=== PATIENT | female | born 1955 | race Caucasian/White ===

== ENCOUNTER 2017-09-12 19:16 | Emergency (ER) | payer OTHER ==
[2017-09-12] MEDS ORDERED: HYDROCODONE/APAP 10/325 TAB ONE (19:34)
--- NOTE | 2017-09-12 20:15 | RAD REPORT ---
EXAM DESCRIPTION: RAD - Wrist Left 3 View - 09/12/2017 7:59 pm CLINICAL HISTORY: Left wrist pain status post injury FINDINGS: An impacted intra-articular mildly displaced fracture involves the distal radius. No dislocation is seen
--- NOTE | 2017-09-12 20:38 | EDPHYS ---
Physician Documentation [facility] Name: Honey Nixon Age: 62 yrs Sex: Female : 1955 Arrival Date: 09/12/2017 Time: 19:17 Bed 26 Private MD: ED Physician Zak Langford HPI: 09/12 20:00 This 62 yrs old Female presents to ER via Ambulatory with complaints of Left pm1 Wrist Injury. 20:00 The patient or guardian reports pain, swelling. The complaints affect the left wrist pm1 diffusely. Context: The problem was sustained at work, resulted from a fall, while walking. Onset: The symptoms/episode began/occurred just prior to arrival. Modifying factors: The symptoms are alleviated by nothing, the symptoms are aggravated by movement. Associated signs and symptoms: Pertinent negatives: cyanosis distally, decreased sensation distally, numbness distally, tingling distally. 20:00 Patient tripped on a erin at work and fell. Stopped her fall with left hand pm1 outstretched. Presenting with pain to left wrist. No head injury, headache, LOC, neck pain or injury. Historical: - Allergies: 19:23 percodan; aj - Home Meds: 19:23 None [Active]; aj - PMHx: 19:23 None; aj - PSHx: 19:23 L wrist; aj - Immunization history:: Adult Immunizations up to date. - Social history:: Smoking status: Patient/guardian denies using tobacco. ROS: 20:00 Constitutional: Negative for fever, chills, and weight loss, Eyes: Negative for injury, pm1 pain, redness, and discharge, ENT: Negative for injury, pain, and discharge, Neck: Negative for injury, pain, and swelling, Cardiovascular: Negative for chest pain, palpitations, and edema, Respiratory: Negative for shortness of breath, cough, wheezing, and pleuritic chest pain, Abdomen/GI: Negative for abdominal pain, nausea, vomiting, diarrhea, and constipation, Back: Negative for injury and pain. 20:00 Skin: Negative for injury, rash, and discoloration, patient with small abrasion to left dorsal aspect of left wrist prior to injury 20:00 MS/extremity: Positive for injury or acute deformity, pain, of the left wrist. Exam: 20:00 Hand exam: is negative for laceration, puncture, Exam is positive for pain, swelling, pm1 Circulation is intact in all extremities. sensation intact. 20:00 Constitutional: This is a well developed, well nourished patient who is awake, alert, and in no acute distress. Head/Face: Normocephalic, atraumatic. Chest/axilla: Normal chest wall appearance and motion. Nontender with no deformity. No lesions are appreciated. Cardiovascular: Regular rate and rhythm with a normal S1 and S2. No gallops, murmurs, or rubs. Normal PMI, no JVD. No pulse deficits. Respiratory: Lungs have equal breath sounds bilaterally, clear to auscultation and percussion. No rales, rhonchi or wheezes noted. No increased work of breathing, no retractions or nasal flaring. Back: No spinal tenderness. No costovertebral tenderness. Full range of motion. Skin: Warm, dry with normal turgor. Normal color with no rashes, and no evidence of cellulitis. Small abrasion present to dorsal aspect of wrist 20:00 Neuro: Orientation: is normal, Motor: moves all fours. Vital Signs: 19:23 BP 129 / 68; Pulse 84; Resp 16; Temp 98.6; Pulse Ox 100% on R/A; Weight 53.52 kg; aj Height 5 ft. 3 in. (160.02 cm); Pain 10/10; 19:23 Body Mass Index 20.90 (53.52 kg, 160.02 cm) aj Procedures: 20:25 Splinting: Splint applied to left wrist using Orthoglass splint, applied by tech. pm1 Examined by me, post splint application: neurovascular intact, 2+ distal pulses palpable, brisk capillary refill noted, Patient tolerated well, Patient unable to tolerate placing sugar tong Orthoglass in 45 degree angle cockup at the wrist. Splinted in position closest to 45 degree angle. MDM: 19:29 Patient medically screened. pm1 20:36 Data reviewed: vital signs. Data interpreted: Pulse oximetry: on room air is 100 %. pm1 Interpretation: normal. Counseling: I had a detailed discussion with the patient and/or guardian regarding: the historical points, exam findings, and any diagnostic results supporting the discharge/admit diagnosis, radiology results, the need for outpatient follow up, for definitive care, a orthopedic surgeon, to return to the emergency department if symptoms worsen or persist or if there are any questions or concerns that arise at home. 09/12 19:29 Order name: Wrist Left (3 View) XRAY; Complete Time: 20:17 tw4 09/12 20:18 Order name: Gabi Tong Forearm Splint; Complete Time: 20:46 pm1 09/12 20:18 Order name: Sling; Complete Time: 20:45 pm1 Administered Medications: 19:37 Drug: [place] 10 mg-325 mg 1 tabs Route: PO; aj 21:36 Follow up: Response: No adverse reaction aj1 Disposition: 09/13 00:32 Co-signature as Attending Physician, Jacob Greene NP I agree with the assessment and tw4 plan of care. Disposition: 09/12/17 20:38 Discharged to Home. Impression: Impacted intra-articular mildly displaced distal left radius fracture. - Condition is Stable. - Discharge Instructions: Cast or Splint Care, Wrist Fracture, Arm Sling Use, [id number]. - Prescriptions for Tylenol- Codeine #3 300-30 mg Oral Tablet - take 2 tablets by ORAL route every 6 hours As needed; 20 tablet. - Work release form, Medication Reconciliation Form, Thank You Letter, Prescription Opioid Use form. - Follow up: Emergency Department; When: As needed; Reason: Worsening of condition. Follow up: Private Physician; When: 2 - 3 days; Reason: Recheck today's complaints, Continuance of care, Re-evaluation by your physician. - Problem is new. - Symptoms have improved. Signatures: Dispatcher [employer] EDMone Frank RN RN aj1 Glenny Burns RN RN aj Marinas, Patrick, NP [employer] pm1 Zak Langford MD MD tw4 Corrections: (The following items were deleted from the chart) 09/12 21:38 20:38 09/12/2017 20:38 Discharged to Home. Impression: Impacted intra-articular mildly aj1 displaced distal left radius fracture. Condition is Stable. Forms are Medication Reconciliation Form, Thank You Letter, Antibiotic Education, Prescription Opioid Use. Follow up: Emergency Department; When: As needed; Reason: Worsening of condition. Follow up: Private Physician; When: 2 - 3 days; Reason: Recheck today's complaints, Continuance of care, Re-evaluation by your physician. Problem is new. Symptoms have improved. pm1
--- NOTE | 2017-09-12 20:38 | ER ---
Nurse's Notes [facility] Name: Honey Nixon Age: 62 yrs Sex: Female : 1955 Arrival Date: 09/12/2017 Time: 19:17 Bed 26 Private MD: Diagnosis: Impacted intra-articular mildly displaced distal left radius fracture Presentation: 09/12 19:22 Presenting complaint: Patient states: Left wrist pain since landing on hand at 1800 aj today. Transition of care: patient was not received from another setting of care. Onset of symptoms was September 12, 2017. Care prior to arrival: None. 19:22 Method Of Arrival: Ambulatory aj 19:22 Acuity: JASE 4 aj 21:37 Initial Sepsis Screen: Does the patient meet any 2 criteria? No. Patient's initial aj1 sepsis screen is negative. Does the patient have a suspected source of infection? No. Patient's initial sepsis screen is negative. Triage Assessment: 19:23 General: Appears in no apparent distress. uncomfortable, Behavior is calm, cooperative, aj appropriate for age. Pain: Complains of pain in left wrist. Neuro: Level of Consciousness is awake, alert, obeys commands, Oriented to person, place, time, situation, Appropriate for age. Respiratory: Airway is patent Trachea midline Respiratory effort is even, unlabored, Respiratory pattern is regular, symmetrical. Derm: Skin is intact, is healthy with good turgor, Skin is pink, warm \T\ dry. normal. Musculoskeletal: Circulation, motion, and sensation intact. Bony deformity noted of left wrist Swelling present in left wrist Reports pain in left wrist. 19:30 Injury Description: Patient fell at work and landed on her wrist. aj1 Historical: - Allergies: 19:23 percodan; aj - Home Meds: 19:23 None [Active]; aj - PMHx: 19:23 None; aj - PSHx: 19:23 L wrist; aj - Immunization history:: Adult Immunizations up to date. - Social history:: Smoking status: Patient/guardian denies using tobacco. Screenin:30 Abuse screen: Denies threats or abuse. Denies injuries from another. Nutritional aj1 screening: No deficits noted. Tuberculosis screening: No symptoms or risk factors identified. 21:37 Fall Risk None identified. aj1 Assessment: 19:30 General: Appears distressed, uncomfortable, Behavior is cooperative, appropriate for [facility] age, restless. Pain: Complains of pain in left wrist Pain does not radiate. Pain currently is 10 out of 10 on a pain scale. Neuro: Level of Consciousness is awake, alert, obeys commands, Oriented to person, place, time, situation, Speech is normal, Facial symmetry appears normal. Cardiovascular: Patient's skin is warm and dry. Pulses are palpable in left wrist. Respiratory: Airway is patent Respiratory effort is even, unlabored, Respiratory pattern is regular, symmetrical. GI: No signs and/or symptoms were reported involving the gastrointestinal system. : No signs and/or symptoms were reported regarding the genitourinary system. EENT: No signs and/or symptoms were reported regarding the EENT system. Derm: Skin is pink, warm \T\ dry. normal. Musculoskeletal: Capillary refill < 3 seconds, in left fingers. Range of motion: limited in left wrist. 20:30 Reassessment: Patient appears in no apparent distress at this time. No changes from [facility] previously documented assessment. Patient and/or family updated on plan of care and expected duration. Pain level reassessed. Patient is alert, oriented x 3, equal unlabored respirations, skin warm/dry/pink. 20:45 Reassessment: David Greene NP at bedside to check splint. States he would like splint [facility] redone. 21:00 Reassessment: Splint redone to DIFFERENTIAL TESTER specifications. Awaiting DIFFERENTIAL TESTER to check splint. [facility] 21:20 Reassessment: David Greene NP at bedside to check splint. Splint ok per David Greene NP. [facility] Ok to discharge patient. 21:28 Reassessment: Patient states that she gave the DIFFERENTIAL TESTER a paper that she needs him to sign. [facility] Notified patient that he is in a procedure but I will check on it as soon as he is finished. Patient verbalized understanding. 21:30 Reassessment: David Greene NP at bedside to discuss patient's concerns over going back [facility] to work. Vital Signs: 19:23 BP 129 / 68; Pulse 84; Resp 16; Temp 98.6; Pulse Ox 100% on R/A; Weight 53.52 kg; aj Height 5 ft. 3 in. (160.02 cm); Pain 10/10; 19:23 Body Mass Index 20.90 (53.52 kg, 160.02 cm) ED Course: 19:17 Patient arrived in ED. am2 19:22 Triage completed. aj 19:23 Arm band placed on right wrist. Patient placed in an exam room. aj 19:26 Rachelle Patel, RN is Primary Nurse. kr2 19:29 Jacob Greene NP is PHCP. pm1 19:29 Zak Langford MD is Attending Physician. pm1 19:30 Patient has correct armband on for positive identification. Bed in low position. Call aj1 light in reach. 19:30 No provider procedures requiring assistance completed. aj1 19:59 Wrist Left (3 View) XRAY In Process Unspecified. EDMS 20:46 Ha wrap to left elbow and left wrist Orthoglass splint: Sugar tong splint applied on mt left arm. Sling applied to left arm. 21:37 Patient did not have IV access during this emergency room visit. aj1 Administered Medications: 19:37 Drug: [place] 10 mg-325 mg 1 tabs Route: PO; aj1 21:36 Follow up: Response: No adverse reaction aj Outcome: 20:38 Discharge ordered by MD. pm1 21:37 Discharged to home ambulatory. aj1 21:37 Condition: good 21:37 Discharge instructions given to patient, Instructed on discharge instructions, follow up and referral plans. no drinking with medication, no driving heavy equipment, medication usage, splint care, circulation checks Demonstrated understanding of instructions, follow-up care, medications. 21:38 Patient left the ED. aj1 Signatures: Dispatcher [employer] EDMS Mone Wells RN RN aj1 Glenny Burns, RAHEEM RN Jacob Greene, OZIEL DIFFERENTIAL TESTER pm1 Glenny Hernandez amAlvina Davis al Rachelle Patel RN RN kr2
== END 2017-09-12 21:38 | disposition home or self-care (01) ==
LOC: ER 19:16
PROC: 2W3DX1Z Immobilization of Left Lower Arm using Splint (ICD-10-PCS; principal; 2017-09-12)
DX: S52.572A Other intraarticular fracture of lower end of left radius, initial encounter for closed fracture (principal); W01.0XXA Fall on same level from slipping, tripping and stumbling without subsequent striking against object, initial encounter; Y93.01 Activity, walking, marching and hiking; Y92.89 Other specified places as the place of occurrence of the external cause; Z88.5 Allergy status to narcotic agent
CPT/HCPCS: 99283